=== PATIENT | male | born 1965 | race Caucasian/White ===

== ENCOUNTER 2023-08-24 15:45 | Emergency (ER) | payer OTHER, SELFPAY ==
[2023-08-24 15:46] VITALS: BP 111/67
--- NOTE | 2023-08-24 16:32 | ED.GENMED ---
History of Present Illness
General
Chief Complaint: Abdominal Symptoms
Source: patient
Exam Limitations: none
Time Seen by Provider: 08/24/23 16:21
Nursing documentation reviewed up to this point in time: agreed with
History of Present Illness
History of Present Illness:
Patient sent to ED by Dr. Oropeza for LLQ abdominal pain. He has a history of diverticulitis. Reports approx 4 episodes yearly. He follow with Dr. Valdez who is currently away. States he completed a 14 day course of augmentin on and pain is
now returning. He states that typically he repeats the antibiotic course but Dr. Oropeza recommended he come to ED for CT to r/o perforation or abscess. He denies fever/chills, n/v/d. Brought self to ED for eval.
Past History
Past History
ED Past Medical History: None
ED Past Surgical History: None
Review of Systems
Review of Systems
Allergies reviewed?: Yes
All Other Systems: ROS reviewed and negative except as documented in HPI and ROS
Constitutional: Reports no symptoms
EENT: Reports no symptoms
Respiratory: Reports no symptoms
Cardiac: Reports no symptoms
ABD/GI: Reports abdominal pain (LLQ)
: Reports no symptoms
Musculoskeletal: Reports no symptoms
Skin: Reports no symptoms
Neurological: Reports no symptoms
Psychiatric: Reports no symptoms
Phy Exam
General Physical Exam
General Presentation: well appearing and no apparent distress
General age: appears stated age
General Skin: warm and dry
General Habitus: normal
General Mental: alert
Pulmonary Exam
Pulmonary Exam: no respiratory distress
Gastrointestinal Exam
Gastrointestinal Exam: normal bowel sounds, soft, no organomegaly, no pulsatile mass, non distended and no cva tenderness
Palpation: generalized: Minimal tenderness
Musculoskeletal Exam
Musculoskeletal Exam: full ROM
Skin Exam
Skin Exam: normal color, warm/dry and no rash
Psychiatric Exam
Psychiatric Exam: normal mood/affect
Course
Orders/Labs/Results
Orders:
Orders
08/24/23 16:22
CT Abd/pel W Iv And Oral Contr Urgent
Comment:
Reason For Exam: LLQ pain
Iohexol [Omnipaque] See Protocol PO NOW STA
08/24/23 16:23
0.9% Sodium Chloride 1000 ml [Nss] 1,000 ml IV BOLUS
08/24/23 16:34
Complete Blood Count/With Diff Urgent
Comprehensive Metabolic Panel Urgent
Lipase Urgent
08/24/23 19:59
Urinalysis Reflex To Culture Urgent
Date Specimen was Collected: 08/24/23
Time Specimen was Collected: 19:58
Abnormal Lab Results
08/24/23
16:34
RBC 4.17 L 10^6/uL
(4.70-6.10)
Hct 37.8 L %
(39.0-52.0)
MCH 31.4 H pg
(27.0-31.0)
Absolute Monos (auto) 0.8 H 10^3/uL
(0.1-0.6)
Lymphocytes % 19.7 L %
(20.5-51.1)
Monocytes % 11.4 H %
(1.7-9.3)
BUN 25 H mg/dl
(9-20)
08/24/23 16:34
08/24/23 16:34
Vital Signs
Initial and Last Documented VS:
Initial Vital Signs
Temp Pulse Resp BP Pulse Ox
98.2 F 60 18 111/67 99
08/24/23 15:46 08/24/23 15:46 08/24/23 15:46 08/24/23 15:46 08/24/23 15:46
Last Documented Vital Signs
Temp Pulse Resp BP Pulse Ox
98.2 F 55 19 140/72 97
08/24/23 15:46 08/24/23 20:03 08/24/23 20:03 08/24/23 20:03 08/24/23 20:03
*Radiology
Radiology exam reviewed: radiology read reviewed
*Pulse Oximetry
Patient hypoxic: no
*Critical Care Note
Total Time (30-74mins, 75-104mins- exclusive of procedures): Not Applicable
ED Attending Note
-
Portions of this chart may have been created with voice recognition software.� Occasional wrong word or��sound alike� substitutions may have occurred due to the inherent limitations of voice recognition software.
Discharge Plan
Departure
Patient Disposition: Home (Routine Discharge)
Date of Disposition: 08/24/23
Time of Disposition: 20:14
Patient with high blood pressure during this ER visit?: No
Condition: Good
Covid-19: Not Applicable
Discharge Problem:
Abdominal pain
Instructions: Abdominal Pain
Referrals:
Kevin Dixon DO [Family Provider] - Call in 1-3 days for appt
Activity Restrictions/Additional Instructions:
Return to the emergency department immediately for any changes in/worsening of your symptoms
Interventions
Interventions:
*Risk Screen - Suicide Last Done: 08/24/23 17:59
*General Assessment Last Done: 08/24/23 17:59
*Neglect/Abuse Screening Last Done: 08/24/23 17:59
ED- Fall Risk Assessment Last Done: 08/24/23 17:58
*Nursing Disposition Last Done: 08/24/23 20:36
UU-Mcjtxs-Jfvmejseyp Assessment Last Done: 08/24/23 16:30
Discharge Date and Time
Discharge Date/Time: 08/24/23 20:37
Print Language: OMANI
[2023-08-24 16:42] LABS: % Basophils 0.9 % (0-2); % Eosinophils 3.2 % (0-6); % Immature Granulocytes 0.3 % (0-0.5); % Lymphocytes 19.7 % (20.5-51.1); % Monocytes 11.4 % (1.7-9.3); % Neutrophils 64.5 % (42.2-75.2); Absolute Basophils 0.1 10^3/uL (0-0.2); Absolute Eosinophils 0.2 10^3/uL (0-0.7); Absolute Lymphocytes 1.4 10^3/uL (1.2-3.4); Absolute Monocytes 0.8 10^3/uL (0.1-0.6); Absolute Neutrophils 4.4 10^3/uL (1.4-6.5); Hematocrit 37.8 % (39.0-52.0); Hemoglobin 13.1 g/dL (13.0-18.0); Mean Corp Hgb Conc. 34.7 g/dL (33.0-37.0); Mean Corpuscular Hgb 31.4 pg (27.0-31.0); Mean Corpuscular Volume 90.6 fL (80.0-94.0); Mean Platelet Volume 9.8 fL (7.4-10.4); Nucleated Red Blood Cells % 0 % (-); Platelet Count 192 10^3/uL (130-400); Red Blood Cell Count 4.17 10^6/uL (4.70-6.10); Red Cell Dist. Width 13.2 % (11.5-14.5); White Blood Cell Count 6.9 10^3/uL (4.8-10.8)
[2023-08-24] MEDS: NSS 1000 IV (16:42)
[2023-08-24] MEDS: OMNIPAQUE 50 ML PO (16:42)
[2023-08-24 16:56] LABS: ALT (SGPT) 25 U/L (0-50); AST (SGOT) 36 U/L (17-59); Albumin 4.5 g/dl (3.5-5.0); Alkaline Phosphatase 46 U/L (38-126); Blood Urea Nitrogen 25 mg/dl (9-20); Calcium 9.6 mg/dl (8.4-10.2); Carbon Dioxide 27 mmol/L (22-30); Chloride 104 mmol/L (98-107); Glucose 86 mg/dl (70-99); Lipase 101 U/L (23-300); Potassium 4.5 mmol/L (3.5-5.1); Sodium 139 mmol/L (135-145); Total Bilirubin 0.5 mg/dl (0.2-1.3); Total Protein 7.2 g/dl (6.3-8.2); eGFR > 60.00
[2023-08-24 18:00] VITALS: BP 132/68
[2023-08-24 20:03] VITALS: BP 140/72
[2023-08-24 20:10] LABS: Urine Albumin Negative (Neg - Trace); Urine Bilirubin Negative (Negative); Urine Character Clear (Clear); Urine Color Yellow; Urine Glucose Negative (Negative); Urine Ketone Negative (Negative); Urine Leukocyte Negative (Negative); Urine Nitrite Negative (Negative); Urine Occult Blood Negative (Negative); Urine Urobilinogen Negative (Neg - 1+)
== END 2023-08-24 20:37 | disposition home or self-care (01) ==
LOC: EMR 15:45
PROVIDERS: Nurse Practitioner; EMERGENCY PHYSICIAN Emergency Medicine; FAMILY PHYSICIAN Family Medicine
DX: R10.32 Left lower quadrant pain (principal); K57.90 Diverticulosis of intestine, part unspecified, without perforation or abscess without bleeding; E78.5 Hyperlipidemia, unspecified; Z95.1 Presence of aortocoronary bypass graft
CPT/HCPCS: 99285; 96360; 74177; 80053; 81003; 83690; 85025; Q9967